=== PATIENT | female | born 1965 | race Caucasian/White ===

== ENCOUNTER 2019-09-01 19:27 | Emergency (ER) | payer SELFPAY ==
[2019-09-01 19:39] VITALS: BP 178/86
--- NOTE | 2019-09-01 19:45 | ER Document Report ---
HPI - HPI Notes: Patient is a 54-year-old female with a history of hypertension who presents complaining of waking up this morning and noticing some drooling from the left side of her mouth, trouble moving water around in her mouth, incomplete closure of her left eye, dry eye. Patient states that she is otherwise feeling well and is able to urinate normally and have normal bowel movements. She is ambulatory without any difficulties. She has not noticed any other areas of weakness. No recent illness. No other concerns or complaints. No history of CVA, CAD, DM. Patient states that she usually does not go outdoors and denies any tick bites. Denies any headache, fever, head injury, neck pain, changes in vi ajay/mentation/hearing, URI, sore throat, chest pain, palpitations, syncope, cough, shortness of breath, wheeze, dyspnea, abdominal pain, nausea/vomiting/diarrhea, urinary retention, dysuria, hematuria, loss of control of bowel or bladder, numbness/tingling, saddle anesthesia, or rash. - ROS Systems Reviewed and Negative: Yes All other systems reviewed and negative Past Medical History - Social History Smoking Status: Never Smoker Family History: Reviewed & Not Pertinent Vertical Provider Document - CONSTITUTIONAL Agree With Documented VS: Yes Notes: PHYSICAL EXAMINATION: GENERAL: Well-appearing, well-nourished and in no acute distress. A&Ox4. Answers questions appropriately. HEAD: Atraumatic, normocephalic. Non-tender. Loss of wrinkles left forehead. EYES: Pupils equal round and reactive to light, extraocular movements intact, sclera anicteric, conjunctiva are normal. No nystagmus. vis colon intact. There is incomplete closure to the left eyelid. ENT: EAC clear b/l. TM's intact b/l without erythema, fluid, or perforation. Nares patent and without discharge. oropharynx clear without exudates. No tonsilar hypertrophy or erythema. Moist mucous membranes. NECK: Normal range of motion, supple without lymphadenopathy. No rigidity/meningismus. No midline tenderness. LUNGS: Breath sounds clear to auscultation bilaterally and equal. No wheezes rales or rhonchi. HEART: Regular rate and rhythm without murmurs, rubs, gallops. ABDOMEN: Soft, nontender, nondistended abdomen. No guarding, no rebound. Normal bowel sounds present. No CVA tenderness bilaterally. Musculoskeletal: Ext b/l: FROM to passive/active. Strength 5+/5. No deficits noted. No bony tenderness of extremities. Extremities: No cyanosis, clubbing, or edema b/l. Peripheral pulses 2+. Capillary refill less than 2 seconds. NEUROLOGICAL: GCS 15. Cranial nerves grossly intact. There is loss of left sided wrinkles to forehead, incomplete closure of the left eyelid and eye gaze goes vertical when closing the eyes, left facial droop, minimal slurring of speech, normal gait. Normal sensory, motor exams. Reflexes 2+ b/l. CASSY's negative. Pronator drift negative. Heel/hou, finger/nose wnl. Romberg neg. PSYCH: Normal mood, normal affect. SKIN: Warm, Dry, normal turgor, no rashes or lesions noted. Course - Re-evaluation Re-evalutation: 09/01/19 19:42 Patient is an afebrile, well-hydrated, 54-year-old female who presents to the ED with morales's palsy. Dx is consistent with History and Physical Exam findings (i.e. loss of wrinkles to forehead, facial droop, slurring of speech, and incomplete closure of left eyelid with remaining normal neuro exam and b/l strength 5+/5). Vitals are acceptable without any significant tachycardia, tachypnea, or hypoxia. GCS 15, cranial nerves grossly intact. No labs or imaging warranted at this time based on H&P. She is nontoxic-appearing and is tolerating p.o. without any difficulties. Low suspicion for any acute glaucoma, temporal arteritis, meningitis, intracranial hemorrhage, ischemic stroke, or fracture at this time. Patient is aware that this condition can change from initial presentation and that she needs to monitor symptoms closely for any acute changes. Recheck with your PCM/neurologist in 3-5 days. Return to the ED with any worsening/concerning symptoms otherwise as reviewed in discharge. Patient is in agreement. - Vital Signs Vital signs: Temp Pulse Resp BP Pulse Ox 98.0 F 100 16 178/86 H 99 09/01/19 19:34 09/01/19 19:34 09/01/19 19:34 09/01/19 19:34 09/01/19 19:34 Discharge - Discharge Clinical Impression: Morales's palsy Condition: Stable Disposition: HOME, SELF-CARE Instructions: Morales's Palsy ([facility]) Additional Instructions: Rest, Ice/cool compress Use saline eye drops every 1-2 hours and use an ointment version at night time with eye patch Tylenol/ibuprofen as needed F/u with your PCP in 3-5 days for a recheck Schedule consult with neurology for further evaluation and management Return to the ED with any worsening symptoms and/or development of fever, headache, changes in behavior/mentation/vision/speech, chest pain, palpitations, syncope, shortness of breath, trouble breathing, abdominal pain, n/v/d, blood in stool/urine, loss of control of bowel/bladder, urinary retention, muscle weakness/paralysis, saddle anesthesia, numbness/tingling, or other worsening symptoms that are concerning to you. Prescriptions: Prednisone [Deltasone 20 mg Tablet] 3 tab PO DAILY 7 Days tablet Valacyclovir HCl [Valtrex 500 mg Tablet] 1,000 mg PO TID 7 Days #21 tablet Forms: Elevated Blood Pressure Referrals: MELE COX MD [NO LOCAL MD] - Follow up in 3-5 days VERENICE MONTELONGO MD [ACTIVE STAFF] - Follow up as needed
== END 2019-09-01 19:57 | disposition home or self-care (01) ==
LOC: ER 19:27
DX: G51.0 Bell's palsy (principal)
CPT/HCPCS: 99283